=== PATIENT | male | born 1990 | race Asian ===

== ENCOUNTER 2023-05-24 20:53 | Emergency (ER) | payer SELFPAY ==
[~2023-05-24] VITALS: Ht 167.6 cm; Wt 61.2 kg
[2023-05-24 20:55] VITALS: BP_SYST 141; PULSE 83; RESP 16; TEMP 97.2; O2SAT 96
== END 2023-05-24 21:06 ==
LOC: SED 20:53
DX: Z02.89 Encounter for other administrative examinations (principal); R07.89 Other chest pain; Z79.899 Other long term (current) drug therapy
CPT/HCPCS: 99283